=== PATIENT | male | born 1975 | race Two or more races ===

== ENCOUNTER 2019-08-27 07:52 | Emergency (ER) | payer SELFPAY ==
[~2019-08-27] VITALS: Ht 188 cm; Wt 130.0 kg
--- NOTE | 2019-08-27 08:34 | NUR ---
PT IN BED, RESPRIATIONS EVEN AND UNLABORED, CRYING WHEN TALKING ABOUT HIS WHO PASSED 6MONTHS AGO, PT DENIES SI, BUT STATES DEPRESSION, PT STATES HE THINKS THIS PAIN IS RELATED TO ANXIETY AFTER HAVING HIS FIRST DREAM ABOUT HIS MONDAY.
[2019-08-27 08:48] LABS: BASOPHILS # (AUTO) 0.04 x10^3/uL (0-0.1); BASOPHILS % (AUTO) 1 % (0-1); EOSINOPHILS # (AUTO) 0.12 x10^3/uL (0-0.4); EOSINOPHILS % (AUTO) 2 % (1-7); LYMPHOCYTES # (AUTO) 1.68 x10^3/uL (1-3.4); LYMPHOCYTES % (AUTO) 28 % (22-44); MD NO; MEAN CORPUSCULAR HEMOGLOBIN 31.6 pg (27.5-34.5); MEAN CORPUSCULAR VOLUME 92.9 fL (81-97); MEAN PLATELET VOLUME 9.1 fL (7.4-10.4); MONOCYTES # (AUTO) 0.42 x10^3/uL (0.2-0.8); MONOCYTES % (AUTO) 7 % (2-9); NEUTROPHILS # (AUTO) 3.67 x10^3/uL (1.8-6.8); NEUTROPHILS % (AUTO) 62 % (42-75); PLATELET COUNT 158 x10^3/uL (130-400); RED BLOOD COUNT 5.46 x10^6/uL (4.38-5.82)
[2019-08-27 09:00] LABS: ALANINE AMINOTRANSFERASE 49 U/L (12-78); ALBUMIN 3.6 g/dL (3.4-5.0); ANION GAP 8 mmol/L (5-15); CALCIUM 8.8 mg/dL (8.5-10.1); CHLORIDE 103 mmol/L (98-107); CREATININE 0.88 mg/dL (0.7-1.3)
[2019-08-27 09:05] LABS: ALKALINE PHOSPHATASE 87 U/L (45-117); BILIRUBIN,TOTAL 0.6 mg/dL (0.2-1.0); TOTAL PROTEIN 7.4 g/dL (6.4-8.2); TROPONIN I < 0.015 ng/mL (0.000-0.045)
[2019-08-27 09:47] VITALS: BP 159/88
== END 2019-08-27 10:08 | disposition home or self-care (01) ==
LOC: ED 08:53
DX: R07.89 Other chest pain (principal); I10 Essential (primary) hypertension; E11.65 Type 2 diabetes mellitus with hyperglycemia; R11.0 Nausea
CPT/HCPCS: 36415; 71045; 80053; 83036; 84484; 85025; 93005; 99285